=== PATIENT | male | born 1980 | race Caucasian/White ===

== ENCOUNTER 2016-07-20 17:53 | Emergency (ER) | payer SELFPAY ==
[~2016-07-20] VITALS: Ht 188 cm; Wt 90.0 kg
[2016-07-20 17:54] VITALS: BP 134/76; PULSE 106; RESP 20; TEMP 97.8; O2SAT 97
--- NOTE | 2016-07-20 18:35 | PD ---
HPI Chief Complaint: Lump, Cyst, Hernia Time Seen by Provider: 18:26 Travel History International Travel<30 days: No Contact w/Intl Traveler<30days: No Traveled to known affect area: No History of Present Illness HPI Patient 36-year-old male with significant past medical history of distal femur fracture and proximal tibial fracture on the left secondary to a trip and fall 10 years ago presents emergency department with a lump on the lateral aspect of his left knee. Patient states that the lump is and present for approximately week and gradually increasing in size and pain. 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 He is not currently followed by an orthopedist. Denies any fever denies any other extremity pain and denies any trauma. PFSH Past Medical History Medical History: Denies Significant Hx Tetanus Vaccination: > 5 Years Influenza Vaccination: No Social History Alcohol Use: Yes (occu: 1-2 a month 2 weeks ago) Tobacco Use: Yes (1 ppd) Substance Use: No Allergies-Medications (Allergen,Severity, Reaction): Coded Allergies: UNOBTAINABLE (Unverified , 07/20/16) Reported Meds & Prescriptions Reported Meds & Active Scripts Active [place] (Hydrocodone-Acetaminophen) 5-325 mg Tab 1 Tab PO Q4H PRN Review of Systems Except as stated in HPI: all other systems reviewed are Neg Physical Exam Narrative GENERAL: Well-nourished, well-developed patient. SKIN: Focused skin assessment warm/dry. HEAD: Normocephalic. EYES: No scleral icterus. No injection or drainage. NECK: Supple, trachea midline. No JVD or lymphadenopathy. CARDIOVASCULAR: Regular rate and rhythm without murmurs, gallops, or rubs. RESPIRATORY: Breath sounds equal bilaterally. No accessory muscle use. GASTROINTESTINAL: Abdomen soft, non-tender, nondistended. MUSCULOSKELETAL: No cyanosis, or edema. Right lower extremity is atraumatic and no gross abnormality. Left lower extremity shows evidence of prior fracture of the left distal femur and left proximal tibia. There is a notable joint effusion. No overlying erythema no warmth to the joint. Patient is able to range his knee greater than 90 of flexion complete extension. No laxity in valgus varus testing anterior posterior drawer. There is a small lump in the lateral aspect of the knee over the proximal tibia. There is some fluctuance and overlying erythema. This could be consistent with a simple cyst. No tenderness at the ankle or hip. Patient is able to play some weight on the knee however quite tender. BACK: Nontender without obvious deformity. No CVA tenderness. Data Data Last Documented VS Vital Signs Date Time Temp Pulse Resp B/P Pulse Ox O2 Delivery O2 Flow Rate FiO2 07/20/16 19:47 96 16 98 07/20/16 17:54 97.8 134/76 Room Air Orders Knee, Complete (4vws) (07/20/16 ) Oxycodone-Acetamin 5-325 Mg (Percocet (07/20/16 18:45) ^ Knee Immobilizer (07/20/16 19:12) Crutches (07/20/16 ) Mandatory Outpatient Referral (07/20/16 19:16) MDM Medical Decision Making Medical Screen Exam Complete: Yes Emergency Medical Condition: Yes Differential Diagnosis Cyst, abscess seems unlikely, septic arthritis seems highly unlikely, arthritis , joint effusion. Narrative Course Patient was roomed in the emergency department. He does have a grape-sized fluid-filled mass on the lateral aspect of his left knee. Differential diagnosis includes a cyst or also could consider that this is an extension of the joint effusion. However does not appear to be infectious in nature. He does have some distorted anatomy and I do not find adequate reason to drain this fluid collection as I think the risks of infection outweigh diagnostic benefits. Patient was xrayd which shows the final. Last 24 hours Impressions Knee X-Ray 07/20/16 0000 Signed Impressions: Service Date/Time: Wednesday, July 20, 2016 18:53 - CONCLUSION: Postsurgical changes. Advanced osteoarthritis for patient of this age. Large joint effusion. Jeferson Brady Jr., MD Discussed the results with the patient and recommended follow up with orthopedics. Instructions as below. Discussed return to ED criteria and symptomatic management. Diagnosis Primary Impression: Knee effusion, left Additional Impression: Knee pain Qualified Code: M25.562 - Acute pain of left knee Referrals: Luis Angel Lira MD Patient Instructions: General Instructions, RICE Therapy (GEN) Additional Instructions: I recommend rest ice knee immobilizer and elevation for the next week, using crutches as partial weightbearing advancing as tolerated the full weightbearing. Need to follow up with a primary care physician as well as orthopedic surgeon. Med/Other Pt SpecificInfo: Prescription(s) given Scripts Hydrocodone-Acetaminophen ([place])5-325 mg Tab1 Tab PO Q4H PRN (PAIN) #15 TAB Ref 0 Prov:Earle Little MD 07/20/16 Disposition: 01 DISCHARGE HOME Condition: Stable Earle Little MD July 20, 2016 18:35
[2016-07-20] MEDS ORDERED: oxyCODONE/ACETAMINOPHEN 5 MG/325 MG TAB PO ONE (18:45)
[2016-07-20] MEDS ORDERED: NORC5TAB PO (19:15)
--- NOTE | 2016-07-20 19:16 | RADRPT ---
EXAM DATE/TIME: 07/20/2016 18:53 [facility] COMPARISON: No previous studies available for comparison. INDICATIONS : Left knee swelling, pain for 4 days with no known injury MEDICAL HISTORY : Prior left knee dislocation SURGICAL HISTORY : Left knee dislocation with nerve repair ENCOUNTER: Initial ACUITY: 4 - 6 days PAIN SCORE: 10/10 LOCATION: Left lateral knee FINDINGS: 4 views of the left knee reveal post surgical changes suggestive of prior anterior cruciate ligament repair. Advanced osteoarthritis is seen involving all 3 compartments but most pronounced within the l ateral compartment. There is joint space narrowing and osteophyte production. Orthopedic screws are s een involving the lateral femoral condyle in the medial proximal tibial metadiaphysis. No acute fract ure or dislocation. Large joint effusion. CONCLUSION: Postsurgical changes. Advanced osteoarthritis for patient of this age. Large joint effusion. Jeferson Brady Jr., MD on July 20, 2016 at 19:13 Board Certified Radiologist. This report was verified electronically.
== END 2016-07-20 19:55 | disposition home or self-care (01) ==
LOC: NEPD 17:53
DX: M25.462 Effusion, left knee (principal); M25.562 Pain in left knee; F17.210 Nicotine dependence, cigarettes, uncomplicated
CPT/HCPCS: 73564; 99283; E0113